=== PATIENT | female | born 1970 | race Asian ===

== ENCOUNTER 2018-03-03 05:56 | Emergency (ER) | payer BC ==
[2018-03-03] MEDS: DEXAMETHASONE 10 MG/ML 1 ML INJ IM (07:16)
[2018-03-03] MEDS: LEVALBUTEROL (NEB) 1.25 MG/0.5 ML AMP HHN (07:24)
== END 2018-03-03 09:35 | disposition home or self-care (01) ==
LOC: FTE 05:56
DX: R05 Cough (principal)
CPT/HCPCS: 94664; 96372; 99284-25